=== PATIENT | male | born 1940 ===

== ENCOUNTER 2024-01-13 11:59 | Inpatient (IN) ==
[2024-01-13 12:47] LABS: BASOPHILS % (AUTO) 0.4 %; HCT - HEMATOCRIT 32.1 % (42.0-52.0); HGB - HEMOGLOBIN 10.4 g/dL (14.0-18.0); LYMPHOCYTES # (AUTO) 0.4 10^3/uL (1.5-3.5); LYMPHOCYTES % (AUTO) 7.1 %; MEAN CORPUSCULAR HEMOGLOBIN 32.5 pg (27.0-31.0); MEAN CORPUSCULAR HGB CONC 32.4 g/dL (32.0-36.0); MEAN CORPUSCULAR VOLUME 100.3 fL (80.0-94.0); MONOCYTES # (AUTO) 0.2 10^3/uL (0.0-1.0); MONOCYTES % (AUTO) 3.4 %; NEUTROPHILS # (AUTO) 4.9 10^3/uL (1.5-6.6); NEUTROPHILS % (AUTO) 89.1 %; PLT - PLATELET COUNT 211 10^3/uL (130-450); RED CELL DISTRIBUTION WIDTH 12.7 % (12.0-15.0); WHITE BLOOD COUNT 5.5 x10^3/uL (4.8-10.8)
[2024-01-13 12:49] LABS: BILIRUBIN,URINE NEGATIVE (NEGATIVE); GLUCOSE, URINE (UA) NEGATIVE (NEGATIVE); KETONES,URINE (UA) NEGATIVE (NEGATIVE); LEUKOCYTE ESTERASE, URINE NEGATIVE (NEGATIVE); NITRITE,URINE NEGATIVE (NEGATIVE); OCCULT BLOOD,URINE LARGE (NEGATIVE); PROTEIN,URINE 100 mg/dL (NEGATIVE); UROBILINOGEN,URINE 0.2 (NORMAL) E.U./dL (NORMAL)
[2024-01-13 12:52] LABS: CLARITY,URINE CLEAR (CLEAR)
--- NOTE | 2024-01-13 12:57 | XRAY Report ---
PROCEDURE: XR Chest 1V INDICATIONS: concern for pneuomonia, fluid overload TECHNIQUE: One view of the chest was acquired. COMPARISON: None. FINDINGS: Surgical changes and devices: Sternotomy and CABG. Lungs and pleura: Right perihilar opacity. 2 cuffing. Mediastinum: Mediastinal contours appear normal. Heart size is normal. Bones and chest wall: No suspicious bony lesions. Overlying soft tissues appear unremarkable. IMPRESSION: Right perihilar opacity concerning for pneumonia or aspiration. Peribronchial cuffing, could represent early pulmonary edema, infectious or inflammatory bronchitis. Reviewed by: Qamar Zepeda MD on 01/13/2024 12:55 PM PDT Approved by: Qamar Zepeda MD on 01/13/2024 12:55 PM PDT Station ID: [id number]
[2024-01-13 13:01] LABS: ALBUMIN 3.5 g/dL (3.2-5.5); ALBUMIN/GLOBULIN RATIO 0.9 (1.0-2.2); BILIRUBIN,TOTAL 0.6 mg/dL (0.2-1.0); CALCIUM 9.4 mg/dL (8.5-10.3); CREATININE 2.8 mg/dL (0.6-1.3); MAGNESIUM 1.7 mg/dL (1.7-2.3); POTASSIUM 5.2 mmol/L (3.5-4.5); TOTAL PROTEIN 7.5 g/dL (6.4-8.9)
[2024-01-13 13:04] LABS: BACTERIA,URINE Rare /HPF (None Seen); SQUAMOUS EPITHELIAL CELL,UR RARE Squamous (<= Few)
--- NOTE | 2024-01-13 13:07 | ED Physician Documentation ---
History of Present Illness Stated complaint Stated Complaint: FOUND DOWN Chief complaint Chief Complaint: Resp Additonal information Additional information: Patient is an 83 yo male on arrival found at home by daughter on EMS pulse and respirations stable. Patient has not been responding since found by daughter at approximately 1100. She called EMS right away and on their arrival he was not responding. Patient has no significnant PMHx from chart review. His last known well time was 9 pm last night after daughter last spoke to him. Meds/Allgy Allergies Allergies Allergy/AdvReac Type Severity Reaction Status Date / Time No Known Drug Allergies Allergy Verified 01/13/24 12:34 [facility] Social History Social History Smoking Status: Unknown if ever smoked Relationship: Child Do you feel safe in your home environment?: No (unobtainable) POLST Patient has POLST: No Exam Constitutional Patinet not alert on arrival HENMT head/scalp atraumatic TM's clear bilaterally Eyes Pupils non-reactive bilaterally Neck/C-Spine Trachea midline, neck is supple no appreciable bruits Chest Old sternotomy wires present on palpation of chest Cardiovascular Crackles on examination of chest equal bilaterally. Peripheral pulses throughout. No rub or gallop, no JVD. Gastrointestinal Abdomen is soft non distended. Back/Pelvis spine normal to inspection Neurology Patient GCS of 7 on arrival non alert. Patient only flexing to pain. He has occasional right arm and left leg movement. he has no signs of trauma. He does not open eyes spontaneously Skin patient does not appear pale or diaphoretic on exam. Results Vitals Vitals: Oxygen O2 Source Nasal cannula Labs Labs: Microbiology 01/13/24 14:00 Blood Culture - Preliminary Blood NO GROWTH AFTER 2 DAYS 01/13/24 13:37 Blood Culture - Preliminary Blood NO GROWTH AFTER 2 DAYS Laboratory Tests 01/13/24 01/13/24 01/13/24 12:30 12:37 14:09 WBC 5.5 RBC 3.20 L Hgb 10.4 L Hct 32.1 L MCV 100.3 H MCH 32.5 H MCHC 32.4 RDW 12.7 Plt Count 211 MPV 10.0 Neut # (Auto) 4.9 Lymph # (Auto) 0.4 L Bath # (Auto) 0.2 Eos # (Auto) 0.0 Baso # (Auto) 0.0 Absolute Nucleated RBC 0.00 Nucleated RBC % 0.0 PT 11.7 INR 1.1 Sodium 141 Potassium 5.2 H Chloride 111 Carbon Dioxide 17 L Anion Gap 13.0 BUN 47 H Creatinine 2.8 H Estimated GFR (MDRD) 22 L Glucose 136 H Lactic Acid 5.9 H* Calcium 9.4 Magnesium 1.7 Total Bilirubin 0.6 AST 31 ALT 12 Alkaline Phosphatase 45 Total Creatine Kinase 93 Troponin I High Sens 3302.1 H* 3356.8 H* B-Natriuretic Peptide 2093 H Total Protein 7.5 Albumin 3.5 Globulin 4.0 Albumin/Globulin Ratio 0.9 L Urine Color YELLOW Urine Clarity CLEAR Urine pH 6.0 Ur Specific [place] 1.020 Urine Protein 100 H Urine Glucose (UA) NEGATIVE Urine Ketones NEGATIVE Urine Occult Blood LARGE H Urine Nitrite NEGATIVE Urine Bilirubin NEGATIVE Urine Urobilinogen 0.2 (NORMAL) Ur Leukocyte Esterase NEGATIVE Urine RBC 11-25 H Urine WBC 4-5 Ur Squamous Epith Cells RARE Squamous Urine Bacteria Rare Ur Microscopic Review INDICATED Urine Culture Comments NOT INDICATED Nasal Adenovirus (PCR) NOT DETECTED Nasal B. parapertussis DNA (PCR) NOT DETECTED Nasal Coronavir 229E PCR NOT DETECTED Nasal Coronavir HKU1 PCR NOT DETECTED Nasal Coronavir NL63 PCR NOT DETECTED Nasal Coronavir OC43 PCR NOT DETECTED Nasal Enterovir/Rhinovir PCR NOT DETECTED Nasal Influenza B PCR NOT DETECTED Nasal Influenza A PCR NOT DETECTED Nasal Parainfluen 1 PCR NOT DETECTED Nasal Parainfluen 2 PCR NOT DETECTED Nasal Parainfluen 3 PCR NOT DETECTED Nasal Parainfluen 4 PCR NOT DETECTED Nasal RSV (PCR) NOT DETECTED Nasal B.pertussis DNA PCR NOT DETECTED Nasal C.pneumoniae (PCR) NOT DETECTED Paulino Human Metapneumo PCR NOT DETECTED Nasal M.pneumoniae (PCR) NOT DETECTED Nasal SARS-CoV-2 (PCR) NOT DETECTED PD Medical Decision Making ED course Complexity details: reviewed results, re-evaluated patient, d/w family and d/w therapeutic consultant ED course: Patient is an 83-year-old male presenting to the emergency department after being found down at his home. Patient brought in by EMS on 2 L nasal cannula with nasal trumpet in place. Patient slightly tachycardic but unresponsive on e xamination he will move right arm and right leg and occasionally left leg to pain but is unresponsive GCS of 5-7 as he did open his eyes at one point Spontaneously nonreactive pupils appreciated bilaterally. Last known well time was 9 pm last night confirmed by daughter. Nondilated pupils appreciated bilaterally and none pinpoint pupils appreciated. Patient had Wick catheter placed as more than 500 cc appreciated on bladder scan on arrival additionally concerns for fluid overload with crackles in the lungs with rhonchi and hypoxic on arrival. Workup for altered mental status begun here in the emergency department. He is EKG shows sinus tachycardia but LVH as well no signs of ST elevation or version concerning for ACS at this time. Initial troponin returns in the 2999's. Will hold off on heparin at this time as pending altered mental status workup. Chest x-ray shows signs of pneumonia and right upper quadrant with additional concerns for peripheral edema BNP returns in however patient has GFR of 22 this could be secondary to significant CKD. Unsure of patient's baseline and has no other records on file. 1427: Discussed case with Dr. Hosea Shoemaker radiologist who called on CT scan results showing significant intracranial bleed could be secondary to aneurysmal rupture but he cannot specify without CTA head and neck. 1450: Discussed with on-call stroke [facility] physician Dr. Cole who Has not been able to review images but based off of assessment recommends CTA and intubation as he will most likely clinically deteriorate quickly without intubation unable to reach daughter at this time however she notes he was DNR when he initially arrived to the hospital. 1510: Discussed at length with daughter on findings and plan for transfer to [facility] given significant intracranial bleed however would like to confirm with her patient is DNR. She notes he has never signed paperwork and she is not the official POA but she is only father he has an no or significant other is of a life to also make these decisions. She does not think he would be comfortable being transferred to [facility] to undergo significant procedure at this time. Discussed with patient this would only worsen his condition if the bleed was not treated. She would like to discuss with her . 1520: Discussed again with [facility] and updated them that we are pending intu bation but most likely patient would not be sent over to [facility] she would like us to confirm that patient would not be sent to [facility] and intubation status we will call her back once daughter has made a decision. 1525: Discussed at length with daughter and son-in-law and they have made the decision for no intubation they understand patient can decompensate in the next few hours without intubation or treatment of intracranial head bleed. They understand they were made aware of his other findings with significant aspiration pneumonia and hospice/palliative care would be discontinuation of further treatment at this time. They understand and are willing to talk to social work to sign DNR and POA paperwork at this time for palliative level care at this point in time. 1539: Discussed with Dr. Wilson to confirm no acute intervention at this time no transfer and no imaging. 1545: Discussed case with hospitalist Dr. Perry who is agreeable with admission given patient is being put on palliative care and no further inner mention is being pursued at this time. They are agreeable with this plan and will come evaluate the patient. 1605: Discussed with Dr. Jada Laird Patient POA can be daughter as this is acceptable in the [facility] and POLST form is for outpatient mainly DNR order can be placed by hospitalist and if they need help for next steps they can make a inpatient request . Palliative care nurse did come and evaluate patient here in the ED. Discharge Plan Discharge Patient Disposition: [facility] DC/Xfer Condition: Critical Interventions: ED Admission Assessment Last Done: 01/13/24 17:00
[2024-01-13] MEDS: SODIUM CHLORIDE 0.9% 1,000 ML IV STA (13:14)
[2024-01-13 13:30] LABS: INR 1.1 (0.8-1.2); PT - PROTHROMBIN TIME 11.7 secs (9.9-12.6)
[2024-01-13 13:57] LABS: B. PARAPERTUSSIS- RESP PCR PAN NOT DETECTED; B. PERTUSSIS- RESP PCR PANEL NOT DETECTED; C. PNEUMONIAE- RESP PCR PANEL NOT DETECTED; CORONAVIRUS 229E-RESP PCR NOT DETECTED; CORONAVIRUS HKU1-RESP PCR NOT DETECTED; CORONAVIRUS NL63-RESP PCR NOT DETECTED; CORONAVIRUS OC43-RESP PCR NOT DETECTED; HUMAN METAPNEUMOVIRUS NOT DETECTED; INFLUENZA A- RESP PCR PANEL NOT DETECTED; INFLUENZA B - RESP PCR PANEL NOT DETECTED; M. PNEUMONIAE- RESP PCR PANEL NOT DETECTED; PARAINFLUENZA VIRUS 1 NOT DETECTED; PARAINFLUENZA VIRUS 2 NOT DETECTED; PARAINFLUENZA VIRUS 3 NOT DETECTED; PARAINFLUENZA VIRUS 4 NOT DETECTED; RHINOVIRUS/ENTEROVIRUS NOT DETECTED; RSV- RESP PCR PANEL NOT DETECTED; SARS-CoV-2 -RESP PCR PANEL NOT DETECTED
[2024-01-13] MEDS: cefTRIAXone 2 GM in SODIUM CHLORIDE 0.9% MINIBAG 100 ML IV STA (14:27)
[2024-01-13] MEDS: AZITHROMYCIN INJ 500 MG in SODIUM CHLORIDE 0.9% 250 ML IV STA (14:29)
--- NOTE | 2024-01-13 14:33 | CT Report ---
PROCEDURE: CT Head WO INDICATIONS: head injury fall TECHNIQUE: Noncontrast 4.5 mm thick angled axial sections acquired from the foramen magnum to the vertex. For r adiation dose reduction, the following was used: automated exposure control, adjustment of mA and/or kV according to patient size. COMPARISON: None. FINDINGS: Image quality: Excellent. CSF spaces: There is a large amount of intraventricular hemorrhage filling the fourth ventricle and t hird ventricle and left greater than right lateral ventricles. There is mild dilatation of the ventri cular system. Brain: No midline shift. Extensive intraventricular hemorrhage and hemorrhage in the cisterns and castelan barachnoid hemorrhage. There is also parenchymal hemorrhage in the posterior temporal occipital periv entricular region. Lopez-white matter interface is normal. Age-related volume loss and moderate small vessel ischemic change. Skull and face: Calvarium and visualized facial bones are intact, without suspicious lesions. Sinuses: Visualized sinuses and mastoids are clear. IMPRESSION: Very large intraventricular and subarachnoid hemorrhage. Small associated parenchymal hemorrhage. Above discussed with Jeanine Morrison PA-C at the time of dictation on 01/13/2024 at 1427 hours. Reviewed by: Ollie Jc MD on 01/13/2024 2:31 PM PDT Approved by: Ollie Jc MD on 01/13/2024 2:31 PM PDT Station ID: [id number]
--- NOTE | 2024-01-13 14:38 | CT Report ---
PROCEDURE: CT Abdomen/Pelvis WO INDICATIONS: concern for infection TECHNIQUE: A CT scan of the abdomen and pelvis was performed without the use of intravenous contrast. Images we re recorded and evaluated at appropriate window settings. Reformats: coronal and sagittal. For radiat ion dose reduction, the following was used: automated exposure control, adjustment of mA and/or kV ac cording to patient size. COMPARISON: None. FINDINGS: Image quality: Suboptimal due to arm positioning and motion artifact. Lower chest: Cardiomegaly. Debris within the layering airways. Perihilar consolidation, with a apical to basal gradient.. Liver: No contour-deforming mass. Gallbladder: Cholelithiasis without wall thickening. Biliary tree: No intrahepatic or extrahepatic dilation, accounting for age. Spleen: No splenomegaly. Pancreas: No pancreatic ductal dilation. Adrenals: No adrenal nodule. Kidneys and ureters: No hydronephrosis. Exophytic lesion off the superior pole of the left kidney wit h indeterminate attenuation measuring 1.6 cm (series 2, image 52). No contour-deforming mass. Stomach, bowel and peritoneum: No gastric or small bowel dilation. No abnormal wall thickening. No pa thologic free fluid. Lymph nodes: No central or retroperitoneal adenopathy. Vessels: No infrarenal aortic aneurysm. 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 This measures 1.8 cm. Reproductive organs: Unremarkable. Bladder: Bladder wall thickness is normal, accounting for underdistention. No calcified bladder stone s. Pelvic lymph nodes: No adenopathy by size criteria. Bones: No aggressive osseous abnormality. Other: Left inguinal hernia containing a long segment of nonobstructed bowel. IMPRESSION: Suspected aspiration pneumonia. Indeterminate left renal lesion measuring 1.[address] or MRI for further character ization, to exclude malignancy (renal mass protocol). Moderate left inguinal hernia containing a long segment of nonobstructed small bowel. 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 Recommend sonographic evaluation to exclude dissection. Reviewed by: Qamar Zepeda MD on 01/13/2024 2:36 PM PDT Approved by: Qamar Zepeda MD on 01/13/2024 2:36 PM PDT Station ID: [id number]
--- NOTE | 2024-01-13 14:40 | CT Report ---
PROCEDURE: CT Chest WO INDICATIONS: concern for infection and fluid overload TECHNIQUE: A CT scan of the chest was performed. Intravenous contrast media was not administered. Images were re corded and evaluated at appropriate window settings. Reformats: axial MIP of the chest, coronal and s agittal. For radiation dose reduction, the following was used: automated exposure control, adjustment of mA and/or kV according to patient size. COMPARISON: Same day CT FINDINGS: Image quality: Suboptimal due to motion artifact. Chest wall and lower neck: No thyroid nodule which requires sonographic follow up. No axillary or sup raclavicular adenopathy by size. Lungs and pleura: Dependent consolidation, right greater than left. Debris within the dependent airwa ys. Mediastinum: Heart size is enlarged. No pericardial effusion. No large vessel abnormality. No mediast inal adenopathy by size criteria. Esophagus is patulous, and contains an air-fluid level. Bones: No aggressive osseous abnormality. Upper Abdomen: Please see same day CT. IMPRESSION: Suspected large volume aspiration, with dependent opacities and debris within the dependent airways. Recommend speech pathology referral. The trachea is patulous, and contains air-fluid level, increasing the risk of aspiration. Reviewed by: Qamar Zepeda MD on 01/13/2024 2:39 PM PDT Approved by: Qamar Zepeda MD on 01/13/2024 2:39 PM PDT Station ID: [id number]
--- NOTE | 2024-01-13 15:03 | ED Physician Documentation ---
ED Addendum Addendum Addendum: Note I am supervising the planned intubation for this patient. Per STEPHANIE Porath, this patient was found down with ICH found on hCT, receiving CTA soon. He has poor eGFR but given likelihood of aneurysmal bleed, obtaining CTA is critical. IVH present, along with SAH and IPH. Troponin elevated, with heparin and antiplatelets being held given ICH. Patient to transfer for NSGY evaluation, via flight, however we are intubating first. Patient to be intubated with etomidate, rocuronium, then receive CTA and transfer in critical condition. Lactate elevated. Repeat troponin increased however from 3302 to 3356. BNP elevated to 2093. UA also with blood. Note CT shows possible aspiration PNA as well, with patient on broad spectrum antibiotics, along with other likely incidental findings for follow up at receiving facility, including but not limited to R KNOCKER OFF aneurysm with flap. Update per STEPHANIE that palliative care is now anticipated, per family conversations, with statements he would not want transfer and is likely moving towards DNR/DNI. STEPHANIE states family is choosing solely palliative solely. I have witnessed conversations STEPHANIE has had with transfer center as well. Family is fully aware patient will likely pass away or have high morbidity from this condition without aggressive care but has stated this is what goals of care would be, with DNR/DNI, no transfer or surgery or aggressive treatment. Given this, we anticipate admission to this facility for palliative care. Discharge Plan Discharge Patient Disposition: [facility] DC/Xfer Condition: Critical
[2024-01-13] MEDS: ETOMIDATE 40 MG/20 ML VIAL IVP ONE (16:04)
[2024-01-13] MEDS: VANCOMYCIN INJ 1 GM in SODIUM CHLORIDE 0.9% 250 ML IV STA (16:05)
[2024-01-13] MEDS: ROCURONIUM 50 MG/5 ML VIAL IVP STA (16:05)
--- NOTE | 2024-01-13 16:49 | HISTORY & PHYSICAL EXAMINATION ---
Chief Complaint Chief Complaint Chief Complaint: Altered mentation History of Present Illness Admitted From Admitted From:: Home History Obtained From Records Reviewed: Yes History obtained from: Daughter, America, at bedside Exam Limitations: Patient not responsive History of Present Illness HPI Comment/Other: Patient is a 83-year-old male with a history of hypertension who presented after his daughter found him unresponsive at home. He lives alone, but his daughter checks on him regularly. His religious group also checks on him pretty regularly at home. Yesterday, she spoke with him regarding a dentist appointment, and he was responsive. This morning, the religious group went over, and nobody answered the door, so they let the daughter know. The daughter went over to check on him and found him unresponsive. She called 911, and she told her to start CPR. When the daughter started chest compressions, his face grimaced. He was then brought in to EMS. Here, he was vitally stable with normotensive blood pressures, slight tachycardia of 108. He was slightly tachypneic in the high 20s. He was requiring 2 L of oxygen to maintain 97% saturation lab work showed a mild anemia of 10.4, potassium was slightly elevated at 5.2. His creatinine was also elevated at 2.8, his lactic acid was high at 5.9. Troponin was 3400. BNP was 2093. Imaging was done. Chest x-ray showed right perihilar opacity concerning for aspiration. Head CT showed very large intraventricular and subarachnoid hemorrhage, with a small associated parenchymal hemorrhage. Chest CT showed suspected large volume aspiration. The emergency room PAJeanine, spoke with on-call stroke [facility] physician Dr. Cole. He stated that patient needed to be intubated for airway protection. She then spoke with the patient's daughter about transferring to [facility] to undergo procedure. She does not want aggressive medical treatment. I also spoke with the daughter, America, as well as son-in-law at bedside. We discussed treatment options including intubation and transfer over to [facility] for evaluation by her neurosurgeon, and her neurointensivist. We also discussed hospice care and palliative care approach. Patient has been twice before, but both his wives have now since passed. America is his only daughter, so she is his next of kin, and legal decision maker. 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 She does not believe he would have wanted aggressive medical treatment. Daughter did opt for hospice/palliative care. Meds/Allgy Allergies Allergies Allergy/AdvReac Type Severity Reaction Status Date / Time No Known Drug Allergies Allergy Verified 01/13/24 12:34 [facility] Social History Social History Relationship: Child Do you feel safe in your home environment?: No (unobtainable) POLST Patient has POLST: Yes POLST Status: DNR Review of Systems Status of ROS: unobtainable due to medical condition (Patient obtunded and not able to participate.) Prior Level of Functionality: Living independently prior to admission. Exam Constitutional abnormal general appearance (frail appearing) and other (difficulty breathing; rattle heard) and level of alertness abnormal HENMT normocephalic and head/scalp atraumatic Eyes pupils abnormal (dilated) and (not reactive) Neck/C-Spine trachea midline Chest inspection of chest normal and palpation of chest normal Respiratory breath sounds equal bilaterally and rales noted (throughout) Cardiovascular normal heart rate noted, no gallop, no rub, no murmur and peripheral pulses 2+ throughout Gastrointestinal abdomen normal to inspection and abdomen soft to palpation Neurology cranial nerve findings as noted:, speech abnormality noted and GCS calculation - Eye opening: None Verbal response: None Motor response: None [place] Coma Scale total score: 3 Psychiatry orientation abnormal (disoriented to person), (disoriented to place) and (disoriented to time) and cooperative Skin skin color normal Conclusion/Plan Problem List (1) Intraventricular hemorrhage: Plan: Patient found unresponsive by daughter. CT head shows large intraventricular hemorrhage and subarachnoid hemorrhage. Emergency room Jeanine ULRICH, spoke with on-call stroke [facility] physician Dr. Cole. He stated that patient needed to be intubated for airway protection. She then spoke with the patient's daughter about transferring to [facility] to undergo procedure. She does not want aggressive medical treatment. I also spoke with the daughter, America, as well as son-in-law at bedside. We discussed treatment options including intubation and transfer over to [facility] for evaluation by her neurosurgeon, and her neurointensivist. We also discussed hospice care and palliative care approach. They opted for this. Continue morphine for pain, Ativan or Haldol for agitation, zofran for nausea, oxygen as needed for comfort. Social work and Hospice consulted for further management. (2) Subarachnoid hemorrhage: Plan: See above. (3) Aspiration pneumonia: Plan: Patient's daughter would like patient to be Hospice, DNR, DNI. Will not intubate patient and focus on comfort. Qualifiers: Aspiration pneumonia type: unspecified Laterality: unspecified laterality Lung location: unspecified part of lung Qualified Code(s): J69.0 - Pneumonitis due to inhalation of food and vomit (4) [place] coma scale eye opening score 1, does not open eyes: Plan: Will not intubate and focus on comfort. Qualifiers: Coma timing: at hospital admission Qualified Code(s): R40.2113 - Coma scale, eyes open, never, at hospital admission (5) Hospice care: Plan: Patient will be opting for Hospice care. See above. Lab Results Lab results reviewed: Yes 01/13/24 12:37 01/13/24 12:37 Diagnostic Imaging Results Diagnostic Imaging Results: positive Final report reviewed Diagnostic Imaging Results Comments: CT head shows very large intraventricular and subarachnoid hemorrhage. Small associated parenchymal hemorrhage. CT chest showed suspected aspiration pneumonia. Indeterminate left renal lesion measuring 1.[address] or MRI for further characterization, to exclude malignancy (renal mass protocol). Moderate left inguinal hernia containing a long segment of nonobstructed small bowel. 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 Recommend sonographic evaluation to exclude dissection. EKG Results EKG Interpreted Independently: Yes Core Measures Anticipated LOS I expect patient to be DC'd or transferred within 96 hours.: Yes DVT/VTE - Prophylaxis VTE/DVT Device ordered at admit?: No Not Ordered - Medical Reason: Not indicated VTE/DVT Prophylaxis med ordered at admit?: No Not Ordered - Medical Reason: Not indicated Stroke - Rehab Assessment Rehab services assessment to be ordered?: No Not Ordered - Medical Reason: Not indicated AMI - Statin at Admit Aspirin Prescribed on Admit: No Not Ordered - Medical Reason: Not indicated
[2024-01-13] MEDS ORDERED: GI COCKTAIL 120 ML BOTTLE PO PRN (17:29)
[2024-01-13] MEDS ORDERED: ATROPINE 1% OPHTH DROPS 2 ML SL PRN (17:29)
[2024-01-13] MEDS ORDERED: haloperidoL 1 MG TABLET PO PRN (17:29)
[2024-01-13] MEDS ORDERED: ONDANSETRON 4 MG/2 ML VIAL IVP PRN (17:29)
[2024-01-13] MEDS: MORPHINE 2 MG/ML CARPUJECT IVP PRN (17:35)
--- NOTE | 2024-01-14 18:33 | PROVIDER PROGRESS NOTE ---
Subjective Prog Note Date Prog Note Date: 01/14/24 Prog Note Time: 18:28 Subjective Subjective: Pt lying in bed, nonverbal. Family at bedside- daugther. Family note pt appears comfortable. More alert than yesterday but noncommunicative. Current Medications Current Medications Current Medications: Current Medications Generic Name Dose Route Start Last Admin Trade Name Freq PRN Reason Stop Dose Admin Atropine Sulfate 1 - 4 drops 01/13/24 17:29 Atropine 1% Ophth Drops 2 Ml SL Q2H PRN Excessive secretions Haloperidol 1 mg 01/13/24 17:29 Haloperidol 1 Mg Tablet PO Q6H PRN Nausea / Vomiting Lorazepam 1 mg 01/13/24 17:29 Lorazepam 1 Mg Tablet PO Q6H PRN Anxiety/Agitation Morphine Sulfate 2 mg 01/13/24 17:29 01/14/24 11:29 Morphine 2 Mg/Ml Carpuject IVP 2 mg Q2HR PRN Administration Severe Pain (Level 7-10)/ SOA Multi-Ingredient Mouthwash/Gargle 5 ml 01/13/24 17:29 Gi Cocktail 120 Ml Bottle PO Q2H PRN Mucositis Ondansetron HCl 4 mg 01/13/24 17:29 Ondansetron 4 Mg/2 Ml Vial IVP Q8H PRN Nausea / Vomiting Objective Vital Signs/Intake & Output Intake & Output: Intake & Output 01/12/24 01/13/24 01/14/24 01/15/24 05:59 05:59 05:59 05:59 Intake Total 1000 / 1000 Output Total 750 / 750 325 / 325 Balance 250 / 250 -325 / -325 Weight (kg) 44 kg Objective Comments/Other: older man lying in bed, NAD, sclera anicteric, MMM LCTAB anteriorly, nonlabored, RRR, S1S2, no edema awake, does not track examiner or attend to questions, nonverbal, moving L hand in the air as if reaching for something, not moving R hand huber Lab Results 01/13/24 12:37 01/13/24 12:37 Assessment/Plan Problem List (1) Intraventricular hemorrhage: (2) Subarachnoid hemorrhage: (3) Aspiration pneumonia: Qualifiers: Aspiration pneumonia type: unspecified Laterality: unspecified laterality Lung location: unspecified part of lung Qualified Code(s): J69.0 - Pneumonitis due to inhalation of food and vomit (4) Hospice care: Impression: 83 yo M with pmhx of HTN presenting after being found down unresponsive. Found to have large intraventricular hemorrhage and SAH on CT. - GOC is comfort. I continued GOC discussion, including prognosis and end of life care. - analgesics, antiemetics prn - no indication for iv fluids or artificial feeding, which family agrees with - prognosis likely short days to short weeks - appreciate SW and hospice eval - updated daughter at bedside and she agrees with plan DNR/DNI
[2024-01-14] MEDS: LORazepam 1 MG TABLET PO PRN (22:19)
--- NOTE | 2024-01-15 18:24 | PROVIDER PROGRESS NOTE ---
Subjective Prog Note Date Prog Note Date: 01/15/24 Prog Note Time: 18:20 Subjective Subjective: Pt less active today, not moving arms. Somnolent, nonverbal, irregular respirations at times. Appears comfortable per family at bedside. Current Medications Current Medications Current Medications: Current Medications Generic Name Dose Route Start Last Admin Trade Name Freq PRN Reason Stop Dose Admin Atropine Sulfate 1 - 4 drops 01/13/24 17:29 Atropine 1% Ophth Drops 2 Ml SL Q2H PRN Excessive secretions Haloperidol 1 mg 01/13/24 17:29 Haloperidol 1 Mg Tablet PO Q6H PRN Nausea / Vomiting Lorazepam 1 mg 01/13/24 17:29 01/14/24 22:19 Lorazepam 1 Mg Tablet PO 1 mg Q6H PRN Administration Anxiety/Agitation Morphine Sulfate 2 mg 01/13/24 17:29 01/15/24 16:25 Morphine 2 Mg/Ml Carpuject IVP 2 mg Q2HR PRN Administration Severe Pain (Level 7-10)/ SOA Multi-Ingredient Mouthwash/Gargle 5 ml 01/13/24 17:29 Gi Cocktail 120 Ml Bottle PO Q2H PRN Mucositis Ondansetron HCl 4 mg 01/13/24 17:29 Ondansetron 4 Mg/2 Ml Vial IVP Q8H PRN Nausea / Vomiting Objective Vital Signs/Intake & Output Reviewed Vital Signs: Yes Intake & Output: Intake & Output 01/13/24 01/14/24 01/15/24 01/16/24 05:59 05:59 05:59 05:59 Intake Total 1000 / 1000 Output Total 750 / 750 525 / 525 450 / 450 Balance 250 / 250 -525 / -525 -450 / -450 Weight (kg) 44 kg Objective Comments/Other: older man lying in bed, NAD, sclera anicteric, MMM LCTAB anteriorly, nonlabored, irregular deep breathing at times RRR, S1S2, no edema obtunded, nonverbal, does not arouse to voice or tactile stimuli, pupils equal, not dilated, sluggish huber Lab Results 01/13/24 12:37 01/13/24 12:37 Assessment/Plan Problem List (1) Intraventricular hemorrhage: (2) Subarachnoid hemorrhage: (3) Aspiration pneumonia: Qualifiers: Aspiration pneumonia type: unspecified Laterality: unspecified laterality Lung location: unspecified part of lung Qualified Code(s): J69.0 - Pneumonitis due to inhalation of food and vomit (4) Hospice care: Impression: 83 yo M with pmhx of HTN presenting after being found down unresponsive. Found to have large intraventricular hemorrhage and SAH on CT. Level of alertness declining, now irregular respirations, likely in active dying process. - GOC is comfort. I continued GOC discussion, including prognosis and end of life care. - analgesics, antiemetics prn - no indication for iv fluids or artificial feeding, which family agrees with - prognosis likely short days - appreciate SW and hospice eval - updated daughter at bedside and she agrees with plan DNR/DNI
--- NOTE | 2024-01-16 16:28 | PROVIDER PROGRESS NOTE ---
Subjective Prog Note Date Prog Note Date: 01/16/24 Prog Note Time: 16:25 Subjective Subjective: Pt remains obtunded, not moving extremities. Daughter and son in law at bedside. Some grimacing and tachypnea noted at times. Morphine helps these symptoms. Current Medications Current Medications Current Medications: Current Medications Generic Name Dose Route Start Last Admin Trade Name Freq PRN Reason Stop Dose Admin Atropine Sulfate 1 - 4 drops 01/13/24 17:29 Atropine 1% Ophth Drops 2 Ml SL Q2H PRN Excessive secretions Haloperidol 1 mg 01/13/24 17:29 Haloperidol 1 Mg Tablet PO Q6H PRN Nausea / Vomiting Lorazepam 1 mg 01/13/24 17:01/14/24 22:19 Lorazepam 1 Mg Tablet PO 1 mg Q6H PRN Administration Anxiety/Agitation Morphine Sulfate 2 mg 01/13/24 17:01/16/24 14:20 Morphine 2 Mg/Ml Carpuject IVP 2 mg Q2HR PRN Administration Severe Pain (Level 7-10)/ SOA Multi-Ingredient Mouthwash/Gargle 5 ml 01/13/24 17:29 Gi Cocktail 120 Ml Bottle PO Q2H PRN Mucositis Ondansetron HCl 4 mg 01/13/24 17:29 Ondansetron 4 Mg/2 Ml Vial IVP Q8H PRN Nausea / Vomiting Objective Vital Signs/Intake & Output Reviewed Vital Signs: Yes Vital Signs: Vital Signs x48h Temp Pulse Resp BP Pulse Ox 01/16/24 16:11 37.1 C 88 26 H 165/103 H 91 L 01/16/24 08:57 37.1 C 101 H 32 H 154/92 H 92 Intake & Output: Intake & Output 01/14/24 01/15/24 01/16/24 01/17/24 05:59 05:59 05:59 05:59 Intake Total 1000 / 1000 Output Total 750 / 750 525 / 525 800 / 800 725 / 725 Balance 250 / 250 -525 / -525 -800 / -800 -725 / -725 Weight (kg) 44 kg Objective Comments/Other: older man lying in bed, NAD, sclera anicteric, MMM LCTAB anteriorly, nonlabored, irregular deep breathing at times, tachypnea to 28 this am RRR, S1S2, no edema obtunded, nonverbal, does not arouse to voice or tactile stimuli, huber Lab Results 01/13/24 12:37 01/13/24 12:37 Assessment/Plan Problem List (1) Intraventricular hemorrhage: (2) Subarachnoid hemorrhage: (3) Aspiration pneumonia: Qualifiers: Aspiration pneumonia type: unspecified Laterality: unspecified laterality Lung location: unspecified part of lung Qualified Code(s): J69.0 - Pneumonitis due to inhalation of food and vomit (4) Hospice care: Impression: 83 yo M with pmhx of HTN presenting after being found down unresponsive. Found to have large intraventricular hemorrhage and SAH on CT. Level of alertness declining, now irregular respirations, tachypnea. - Suspect pt is in active dying process/imminent expected - GOC is comfort. I continued GOC discussion, including prognosis and end of life care. - analgesics, antiemetics prn - monitor resp status closely and given morphine for tachypnea. May schedule 2 mg iv q 4 hr if he needs frequent dosing. - no indication for iv fluids or artificial feeding, which family agrees with - updated daughter at bedside and she agrees with plan DNR/DNI
[2024-01-16] MEDS ORDERED: HALOPERIDOL 5 MG/ML VIAL IM PRN (16:30)
[2024-01-16] MEDS: LORazepam 2 MG/ML VIAL IVP PRN (23:24)
[2024-01-16] MEDS: SCOPOLAMINE PATCH TOP PRN (23:24)
[2024-01-17] MEDS: ACETAMINOPHEN 650 MG SUPP PR PRN (07:43)
[2024-01-17] MEDS: MORPHINE 2 MG/ML CARPUJECT IVP SCH (12:06)
--- NOTE | 2024-01-17 13:59 | PROVIDER PROGRESS NOTE ---
Subjective Prog Note Date Prog Note Date: 01/17/24 Prog Note Time: 13:59 Subjective Subjective: Remains obtunded. Unresponsive. Received morphine for pain and air hunger, 5 doses yestereday. Comfortable today. Family at bedside. Current Medications Current Medications Current Medications: Current Medications Generic Name Dose Route Start Last Admin Trade Name Freq PRN Reason Stop Dose Admin Acetaminophen 650 mg 01/16/24 16:32 01/17/24 07:43 Acetaminophen 650 Mg Supp [place] 650 mg Q6HR PRN Administration Pain or Fever > 38C (100.4F) Atropine Sulfate 1 - 4 drops 01/13/24 17:29 Atropine 1% Ophth Drops 2 Ml SL Q2H PRN Excessive secretions Haloperidol 1 mg 01/16/24 16:30 Haloperidol 5 Mg/Ml Vial IM Q6H PRN Agitation Lorazepam 1 mg 01/16/24 16:30 01/16/24 23:24 Lorazepam 2 Mg/Ml Vial IVP 1 mg Q2H PRN Administration Anxiety Morphine Sulfate 2 mg 01/13/24 17:29 01/16/24 23:24 Morphine 2 Mg/Ml Carpuject IVP 2 mg Q2HR PRN Administration Severe Pain (Level 7-10)/ SOA Morphine Sulfate 2 mg 01/17/24 12:00 01/17/24 12:06 Morphine 2 Mg/Ml Carpuject IVP 2 mg Q4H ISAMAR Administration Multi-Ingredient Mouthwash/Gargle 5 ml 01/13/24 17:29 Gi Cocktail 120 Ml Bottle PO Q2H PRN Mucositis Ondansetron HCl 4 mg 01/13/24 17:29 Ondansetron 4 Mg/2 Ml Vial IVP Q8H PRN Nausea / Vomiting Scopolamine HBr 1 patch 01/16/24 16:30 01/16/24 23:24 Scopolamine Patch TOP 1 patch Q3D PRN Administration upper airway secretions Objective Vital Signs/Intake & Output Reviewed Vital Signs: Yes Vital Signs: Vital Signs x48h Temp Pulse Resp BP 01/17/24 09:30 36.5 C 01/17/24 07:38 38.7 C H 130 H 20 149/96 H Intake & Output: Intake & Output 01/15/24 01/16/24 01/17/24 01/18/24 05:59 05:59 05:59 05:59 Intake Total 0 / 0 Output Total 525 / 525 800 / 800 1075 / 1075 75 / 75 Balance -525 / -525 -800 / -800 -1075 / -1075 -75 / -75 Objective Comments/Other: older man lying in bed, NAD, sclera anicteric, MMM LCTAB anteriorly, nonlabored, irregular deep breathing at times RRR, S1S2, no edema obtunded, nonverbal, does not arouse to voice or tactile stimuli, huber Lab Results 01/13/24 12:37 01/13/24 12:37 Assessment/Plan Problem List (1) Intraventricular hemorrhage: (2) Subarachnoid hemorrhage: (3) Aspiration pneumonia: Qualifiers: Aspiration pneumonia type: unspecified Laterality: unspecified laterality Lung location: unspecified part of lung Qualified Code(s): J69.0 - Pneumonitis due to inhalation of food and vomit (4) Hospice care: Impression: 83 yo M with pmhx of HTN presenting after being found down unresponsive. Found to have large intraventricular hemorrhage and SAH on CT. Level of alertness declining, now irregular respirations, tachypnea. - Suspect pt is in active dying process/imminent expected - GOC is comfort. I continued GOC discussion, including prognosis and end of life care. - analgesics, antiemetics prn - schedule morphine 2 mg iv q 4 hrs - monitor resp status closely and given morphine for tachypnea. - no indication for iv fluids or artificial feeding - updated daughter at bedside and she agrees with plan DNR/DNI
[2024-01-18 09:01] VITALS: O2SAT 94
--- NOTE | 2024-01-18 16:10 | PROVIDER PROGRESS NOTE ---
Subjective Prog Note Date Prog Note Date: 01/18/24 Prog Note Time: 16:07 Subjective Subjective: Stable. Breathing less labored today. REmains unresponsive. Current Medications Current Medications Current Medications: Current Medications Generic Name Dose Route Start Last Admin Trade Name Freq PRN Reason Stop Dose Admin Acetaminophen 650 mg 01/16/24 16:32 01/17/24 07:43 Acetaminophen 650 Mg Supp [place] 650 mg Q6HR PRN Administration Pain or Fever > 38C (100.4F) Atropine Sulfate 1 - 4 drops 01/13/24 17:29 Atropine 1% Ophth Drops 2 Ml SL Q2H PRN Excessive secretions Haloperidol 1 mg 01/16/24 16:30 Haloperidol 5 Mg/Ml Vial IM Q6H PRN Agitation Lorazepam 1 mg 01/16/24 16:30 01/16/24 23:24 Lorazepam 2 Mg/Ml Vial IVP 1 mg Q2H PRN Administration Anxiety Morphine Sulfate 2 mg 01/13/24 17:29 01/16/24 23:24 Morphine 2 Mg/Ml Carpuject IVP 2 mg Q2HR PRN Administration Severe Pain (Level 7-10)/ SOA Morphine Sulfate 2 mg 01/17/24 12:00 01/18/24 12:29 Morphine 2 Mg/Ml Carpuject IVP 2 mg Q4H ISAMAR Administration Multi-Ingredient Mouthwash/Gargle 5 ml 01/13/24 17:29 Gi Cocktail 120 Ml Bottle PO Q2H PRN Mucositis Ondansetron HCl 4 mg 01/13/24 17:29 Ondansetron 4 Mg/2 Ml Vial IVP Q8H PRN Nausea / Vomiting Scopolamine HBr 1 patch 01/16/24 16:30 01/16/24 23:24 Scopolamine Patch TOP 1 patch Q3D PRN Administration upper airway secretions Objective Vital Signs/Intake & Output Reviewed Vital Signs: Yes Vital Signs: Vital Signs x48h Temp Pulse Resp BP Pulse Ox 01/18/24 08:59 36.6 C 95 H 20 140/90 H 94 Intake & Output: Intake & Output 01/16/24 01/17/24 01/18/24 01/19/24 05:59 05:59 05:59 04:59 Intake Total 0 / 0 0 / 0 Output Total 800 / 800 1075 / 1075 575 / 575 250 / 250 Balance -800 / -800 -1075 / -1075 -575 / -575 -250 / -250 Objective Comments/Other: older man lying in bed, NAD LCTAB anteriorly, nonlabored, RRR, S1S2, no edema obtunded, nonverbal, does not arouse to voice or tactile stimuli, huber Lab Results 01/13/24 12:37 01/13/24 12:37 Assessment/Plan Problem List (1) Intraventricular hemorrhage: (2) Subarachnoid hemorrhage: (3) Aspiration pneumonia: Qualifiers: Aspiration pneumonia type: unspecified Laterality: unspecified laterality Lung location: unspecified part of lung Qualified Code(s): J69.0 - Pneumonitis due to inhalation of food and vomit (4) Hospice care: Impression: 83 yo M with pmhx of HTN presenting after being found down unresponsive. Found to have large intraventricular hemorrhage and SAH on CT. Now comatose. - Suspect pt is in active dying process/imminent expected - GOC is comfort. I continued GOC discussion, including prognosis and end of life care. - analgesics, antiemetics prn - schedule morphine 2 mg iv q 4 hrs - monitor resp status closely and given morphine for tachypnea. - no indication for iv fluids or artificial feeding - updated daughter at bedside and she agrees with plan DNR/DNI
--- NOTE | 2024-01-19 14:38 | PROVIDER PROGRESS NOTE ---
Subjective Prog Note Date Prog Note Date: 01/19/24 Prog Note Time: 14:30 Subjective Subjective: The patient is a cachectic, elderly [place] male who is unresponsive to voice or painful stimuli. He presented after being found down. He was found by his daughter in their home. Unresponsive. CT shows a large intraventricular and subarachnoid hemorrhage. Admission was on January 12. Current Medications Current Medications Current Medications: Current Medications Generic Name Dose Route Start Last Admin Trade Name Freq PRN Reason Stop Dose Admin Acetaminophen 650 mg 01/16/24 16:32 01/17/24 07:43 Acetaminophen 650 Mg Supp [place] 650 mg Q6HR PRN Administration Pain or Fever > 38C (100.4F) Atropine Sulfate 1 - 4 drops 01/13/24 17:29 Atropine 1% Ophth Drops 2 Ml SL Q2H PRN Excessive secretions Haloperidol 1 mg 01/16/24 16:30 Haloperidol 5 Mg/Ml Vial IM Q6H PRN Agitation Lorazepam 1 mg 01/16/24 16:30 01/19/24 13:03 Lorazepam 2 Mg/Ml Vial IVP 1 mg Q2H PRN Administration Anxiety Morphine Sulfate 2 mg 01/13/24 17:29 01/16/24 23:24 Morphine 2 Mg/Ml Carpuject IVP 2 mg Q2HR PRN Administration Severe Pain (Level 7-10)/ SOA Morphine Sulfate 2 mg 01/17/24 12:00 01/19/24 13:03 Morphine 2 Mg/Ml Carpuject IVP 2 mg Q4H ISAMAR Administration Multi-Ingredient Mouthwash/Gargle 5 ml 01/13/24 17:29 Gi Cocktail 120 Ml Bottle PO Q2H PRN Mucositis Ondansetron HCl 4 mg 01/13/24 17:29 Ondansetron 4 Mg/2 Ml Vial IVP Q8H PRN Nausea / Vomiting Scopolamine HBr 1 patch 01/16/24 16:30 01/16/24 23:24 Scopolamine Patch TOP 1 patch Q3D PRN Administration upper airway secretions Objective Vital Signs/Intake & Output Reviewed Vital Signs: Yes Vital Signs: 140/90, pulse 95, resp 20, temp 36.6, 02 sat 94% onRA Intake & Output: Intake & Output 01/17/24 01/18/24 01/19/24 01/20/24 05:59 05:59 04:59 05:59 Intake Total 0 / 0 0 / 0 0 / 0 Output Total 1075 / 1075 575 / 575 350 / 350 200 / 200 Balance -1075 / -1075 -575 / -575 -350 / -350 -200 / -200 Objective General Appearance: positive No acute distress and Other (Unresponsive to voice or sternal rub, cachectic [place] male with bilateral temporal wasting, diffuse loss of body fat, blood cage visible, sternal wires almost poking through skin, hot to touch) Eyes Bilateral: positive Other (Pupils fixed and dilated, unresponsive to light); negative EOMI ENT: positive Dry mucous membranes (He is mouth breathing, slightly tachypneic) Neck: negative No JVD or Stiff neck Respiratory: positive Other (Fast, shallow respiration. No Kussmaul respiration, no Daniel-Ceja) Cardiovascular: positive Regular rate & rhythm, Tachycardia and Systolic murmur Abdomen: positive No organomegaly and Other (hypoactive bowel sounds) Skin: positive No rash and Other (hot to touch) Extremities: positive Non-tender, No pedal edema and Other (significant loss of muscle mass) Neurologic/Psychiatric: positive Other (no spontaneous movement, unresponsive) Lab Results 01/13/24 12:37 01/13/24 12:37 Assessment/Plan Problem List (1) Intraventricular hemorrhage: Impression: Patient presented with spontaneous hemorrhage. Found down at home. CT scan confirms. Focus is now comfort measures only. He is day 7 of stay. Family continues to endorse wishes for the comfort measures. They have been choice for which hospice organization. Hopefully plan for discharge tomorrow with hospice. (2) Subarachnoid hemorrhage: Impression: as in #1 (3) Aspiration pneumonia: Impression: he has a fever by touch, has tachypnea. At this time, no abx and our goal is a peaceful, comfortable . Qualifiers: Aspiration pneumonia type: unspecified Laterality: unspecified laterality Lung location: unspecified part of lung Qualified Code(s): J69.0 - Pneumonitis due to inhalation of food and vomit (4) Hospice care: Impression: 83 yo M with pmhx of HTN presenting after being found down unresponsive. Found to have large intraventricular hemorrhage and SAH on CT. Now comatose. - Suspect pt is in active dying process/imminent expected. Previous hospitalist has had conversations with daughter and she agreed with tx. I did not have conversation with family today. - GOC is comfort. - Tylenol prn, zofran aofran, haldol prn for nausea, antiemetics prn - schedule morphine 2 mg iv q 4 hrs -lorazepam 2 mg IV prn - monitor resp status closely and given morphine for tachypnea. - no indication for iv fluids or artificial feeding DNR/DNI
--- NOTE | 2024-01-20 10:44 | Discharge Summary ---
"Discharge Summary Admit Date: 01/13/24 Discharge Date: 01/20/24 Discharging Provider: Audrey Swartz MD Primary Care Provider: Deandre Velasquez MD Code Status: Do Not Attempt Resuscitation DIAGNOSES Discharge Diagnoses with Status of Each Condition: 1. Intraventricular hemorrhage 2. Subarachnoid hemorrhage 3. Aspiration pneumonia 4. [place] Coma Scale 1 5. Comfort measures care HPI History of Present Illness: Per admit MD Jose David Bravo MD: Patient is a 83-year-old male with a history of hypertension who presented after his daughter found him unresponsive at home. He lives alone, but his daughter checks on him regularly. His baptist group also checks on him pretty regularly at home. Yesterday, she spoke with him regarding a dentist appointment, and he was responsive. This morning, the baptist group went over, and nobody answered the door, so they let the daughter know. The daughter went over to check on him and found him unresponsive. She called 911, and she told her to start CPR. When the daughter started chest compressions, his face grimaced. He was then brought in to EMS. Here, he was vitally stable with normotensive blood pressures, slight tachycardia of 108. He was slightly tachypneic in the high 20s. He was requiring 2 L of oxygen to maintain 97% saturation lab work showed a mild anemia of 10.4, potassium was slightly elevated at 5.2. His creatinine was also elevated at 2.8, his lactic acid was high at 5.9. Troponin was 3400. BNP was 2093. Imaging was done. Chest x-ray showed right perihilar opacity concerning for aspiration. Head CT showed very large intraventricular and subarachnoid hemorrhage, with a small associated parenchymal hemorrhage. Chest CT showed suspected large volume aspiration. The emergency room PAJeanine, spoke with on-call stroke [facility] physician Dr. Cole. He stated that patient needed to be intubated for airway protection. She then spoke with the patient's daughter about transferring to [facility] to undergo procedure. She does not want aggressive medical treatment. I also spoke with the daughter, America, as well as son-in-law at bedside. We discussed treatment options including intubation and transfer over to [facility] for evaluation by her neurosurgeon, and her neurointensivist. We also discussed hospice care and palliative care approach. Patient has been twice before, but both his wives have now since passed. America is his only daughter, so she is his next of kin, and legal decision maker. 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 She does not believe he would have wanted aggressive medical treatment. Daughter did opt for hospice/palliative care. CONSULTS | PROCEDURES Procedures: 1. Chest x-ray with right perihilar opacity concerning for aspiration pneumonia. Peribronchial cuffing could represent early pulmonary edema, infectious or inflammatory bronchitis. 2. Head CT with large amount of intraventricular hemorrhage filling the fourth and third ventricle and left greater than right lateral ventricles. Mild dilation of the ventricular system. Extensive intraventricular hemorrhage and hemorrhage in the cisterns and subarachnoid hemorrhage. There is also parenchymal hemorrhage in the posterior temporal occipital periventricular region. 3. CT abdomen/pelvis without shows suspected aspiration pneumonia. Indeterminate left renal lesion measuring 1.6 cm. Moderate left inguinal hernia containing long segment of nonobstructed small bowel. 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 Recommend ultrasound to exclude dissection. 4. Chest CT without his large volume aspiration with dependent opacities and debris within the dependent airways. Trachea is patulous and contains air-fluid level increasing the risk for aspiration. Heart is enlarged. No pericardial effusion. Esophagus is patulous and contains air-fluid level. HOSPITAL COURSE Hospital Course: (1) Intraventricular hemorrhage: Impression: Patient presented with spontaneous hemorrhage. Found down at home. CT scan confirms. Focus was comfort measures only. Family continued to endorse wishes for the comfort measures. They have been choiced for which hospice organization. We had a plan for discharge today with hospice but hours before he was discharged. (2) Subarachnoid hemorrhage: Impression: as in #1 (3) Aspiration pneumonia: Impression: he had a fever by touch, had tachypnea. At this time, no abx and our goal was a peaceful, comfortable . Qualifiers: Aspiration pneumonia type: unspecified Laterality: unspecified laterality Lung location: unspecified part of lung Qualified Code(s): J69.0 - Pneumonitis due to inhalation of food and vomit (4) Hospice care: Impression: 83 yo M with pmhx of HTN presenting after being found down unresponsive. Found to have large intraventricular hemorrhage and SAH on CT. Now comatose. - Patient was felt to be in active dying process/imminent expected. Previous hospitalist has had conversations with daughter and she agreed with tx. I did not have conversation with family. Patient in the early childhood hours before a planned discharge. he was pronounced by nursing. While he was here he had: - comfort care measures . - Tylenol prn, zofran aofran, haldol prn for nausea, antiemetics prn - schedule morphine 2 mg iv q 4 hrs -lorazepam 2 mg IV prn - we monitored resp status and gave morphine for tachypnea. - no indication for iv fluids or artificial feeding DNR/DNI ALLERGIES Allergies Allergy/AdvReac Type Severity Reaction Status Date / Time No Known Drug Allergies Allergy Verified 01/13/24 12:34 LABS 01/13/24 12:37 01/13/24 12:37 Discharge Plan Discharge Patient Disposition: 20 Print Language: Kenyan Date/Time: 01/20/24 02:00"
== END 2024-01-20 02:00 | disposition expired | DRG 64 ==
LOC: ED 11:59 → MS2 17:00
PROVIDERS: ADMIT Internal Medicine; ATTEND Internal Medicine
DX: Z51.5 Encounter for palliative care; Z20.828 Contact with and (suspected) exposure to other viral communicable diseases; Z66 Do not resuscitate; I60.9 Nontraumatic subarachnoid hemorrhage, unspecified; Z20.818 Contact with and (suspected) exposure to other bacterial communicable diseases; R94.31 Abnormal electrocardiogram [ECG] [EKG]; R00.0 Tachycardia, unspecified; E87.5 Hyperkalemia; D64.9 Anemia, unspecified; Z20.822 Contact with and (suspected) exposure to COVID-19; R64 Cachexia; I61.5 Nontraumatic intracerebral hemorrhage, intraventricular; I10 Essential (primary) hypertension; J69.0 Pneumonitis due to inhalation of food and vomit; Z68.1 Body mass index [BMI] 19.9 or less, adult